=== PATIENT | female | born 1985 | race Caucasian/White ===

== ENCOUNTER 2019-05-14 10:09 | Emergency (ER) | payer MEDICAID ==
[~2019-05-14] VITALS: Ht 175.3 cm; Wt 101.2 kg
[2019-05-14 10:13] VITALS: BP 131/88; Ht 175.3 cm; Wt 101.2 kg
== END 2019-05-14 13:17 | disposition left against medical advice (07) ==
LOC: ED 10:09
DX: Z53.21 Procedure and treatment not carried out due to patient leaving prior to being seen by health care provider (principal)

== ENCOUNTER 2019-09-14 18:54 | Emergency (ER) | payer MEDICAID, SELFPAY ==
[~2019-09-14] VITALS: Ht 172.7 cm; Wt 102.1 kg
[2019-09-14 19:00] VITALS: Ht 172.7 cm; Wt 102.1 kg
[2019-09-14 20:27] LABS: CALCIUM 8.2 mg/dL (8.5-10.1); CARBON DIOXIDE 25.3 mmol/L (21-32); CHLORIDE SERUM 105 mmol/L (98-107); GFR1 > 60 mL/min; GLUCOSE SERUM 111 mg/dL (74-106); SODIUM SERUM 140 mmol/L (136-145)
[2019-09-14 20:29] LABS: BASOPHIL % 0.1 % (0-2); PLATELET COUNT 240 x10^3mcL (130-400)
[2019-09-14 20:33] LABS: RED CELL DISTRIBUTION WIDTH 16.1 % (11.5-14.5)
[2019-09-14 20:38] LABS: microscopic required? NO
[2019-09-14 20:42] LABS: ALBUMIN 3.7 g/dL (3.4-5.0); ALKALINE PHOSPHATASE 99 U/L (46-116); ALT/SGPT 48 U/L (14-59); AST/SGOT 20 U/L (15-37); BILIRUBIN TOTAL 0.4 mg/dL (0.20-1.00); LIPASE 91 IU/L (73-393)
[2019-09-14 20:44] LABS: TOTAL PROTEIN, SERUM 8.4 g/dL (6.4-8.2)
[2019-09-14 21:04] LABS: UA SPECIFIC GRAVITY >=1.030 (1.005-1.035); urine erythrocyte NEGATIVE (NEGATIVE)
[2019-09-14 21:10] LABS: AMPHETAMINE QUAL UR NONE DETECTED (See below)
[2019-09-14 22:45] VITALS: BP 141/97
== END 2019-09-14 22:45 | disposition home or self-care (01) ==
LOC: ED 18:54
PROVIDERS: Emergency Medicine
DX: R10.30 Lower abdominal pain, unspecified (principal); R11.2 Nausea with vomiting, unspecified; R19.7 Diarrhea, unspecified; I10 Essential (primary) hypertension; Z20.828 Contact with and (suspected) exposure to other viral communicable diseases
CPT/HCPCS: 36600; J2405; J3490; Q0092; U0003-CS

== ENCOUNTER 2019-11-06 12:31 | Emergency (ER) | payer MEDICAID ==
[~2019-11-06] VITALS: Ht 172.7 cm; Wt 97.5 kg
[2019-11-06 13:23] VITALS: Ht 172.7 cm; Wt 97.5 kg
[2019-11-06 14:40] LABS: CALCIUM 8.5 mg/dL (8.5-10.1); CHLORIDE SERUM 102 mmol/L (98-107); CREATININE SERUM 0.8 mg/dL (0.6-1.0); GFR1 > 60 mL/min; GLUCOSE SERUM 100 mg/dL (74-106); POTASSIUM SERUM 4.1 mmol/L (3.5-5.1); SODIUM SERUM 136 mmol/L (136-145)
[2019-11-06 14:41] LABS: AMPHETAMINE QUAL UR NONE DETECTED (See below)
[2019-11-06 14:44] LABS: BASOPHIL % 0.2 % (0-2); PLATELET COUNT 249 x10^3mcL (130-400)
[2019-11-06 14:46] LABS: RED CELL DISTRIBUTION WIDTH 15.5 % (11.5-14.5)
[2019-11-06 14:47] LABS: ALBUMIN 3.7 g/dL (3.4-5.0); ALKALINE PHOSPHATASE 108 U/L (46-116); ALT/SGPT 71 U/L (14-59); AST/SGOT 22 U/L (15-37); BILIRUBIN TOTAL 0.3 mg/dL (0.20-1.00); CHOLESTEROL 157 mg/dL (<200); TOTAL PROTEIN, SERUM 8.3 g/dL (6.4-8.2)
[2019-11-06 15:44] VITALS: BP 138/87
== END 2019-11-06 15:44 | disposition home or self-care (01) ==
LOC: ED 12:31
PROVIDERS: Emergency Medicine
DX: R42 Dizziness and giddiness (principal); R51 Headache; I10 Essential (primary) hypertension
CPT/HCPCS: 36600; G0480; J2405; J7030; J8597

== ENCOUNTER 2019-11-12 22:30 | Emergency (ER) | payer MEDICAID ==
[~2019-11-12] VITALS: Ht 172.7 cm; Wt 104.6 kg
[2019-11-12 22:40] VITALS: BP 145/92; Ht 172.7 cm; Wt 104.6 kg
== END 2019-11-12 23:21 | disposition home or self-care (01) ==
LOC: ED 22:30
DX: S61.412A Laceration without foreign body of left hand, initial encounter (principal); I10 Essential (primary) hypertension; W45.8XXA Other foreign body or object entering through skin, initial encounter; Y93.89 Activity, other specified; Y92.89 Other specified places as the place of occurrence of the external cause; Y99.8 Other external cause status
CPT/HCPCS: 90715; J2001

== ENCOUNTER 2019-12-01 15:10 | Emergency (ER) | payer MEDICAID ==
[~2019-12-01] VITALS: Ht 172.7 cm; Wt 100.7 kg
[2019-12-01 15:18] VITALS: Ht 172.7 cm; Wt 100.7 kg
[2019-12-01 16:29] LABS: CALCIUM 8.2 mg/dL (8.5-10.1); CARBON DIOXIDE 26.2 mmol/L (21-32); CHLORIDE SERUM 102 mmol/L (98-107); GFR1 > 60 mL/min; GLUCOSE SERUM 95 mg/dL (74-106); SODIUM SERUM 138 mmol/L (136-145)
[2019-12-01 17:53] VITALS: BP 120/82
== END 2019-12-01 17:53 | disposition home or self-care (01) ==
LOC: ED 15:10
PROVIDERS: Emergency Medicine
DX: R10.84 Generalized abdominal pain (principal); M54.5 Low back pain; I10 Essential (primary) hypertension
CPT/HCPCS: J1885; Q0092

== ENCOUNTER 2020-05-28 13:42 | Emergency (ER) | payer MEDICAID ==
[~2020-05-28] VITALS: Ht 172.7 cm; Wt 103.4 kg
[2020-05-28 13:47] VITALS: Ht 172.7 cm; Wt 103.4 kg
[2020-05-28 15:12] LABS: CALCIUM 8.9 mg/dL (8.5-10.1); CARBON DIOXIDE 18.1 mmol/L (21-32); CHLORIDE SERUM 105 mmol/L (98-107); CREATININE SERUM 0.8 mg/dL (0.6-1.0); GFR1 > 60 mL/min; GLUCOSE SERUM 97 mg/dL (74-106); POTASSIUM SERUM 4.7 mmol/L (3.5-5.1); SODIUM SERUM 138 mmol/L (136-145)
[2020-05-28 15:27] LABS: ALBUMIN 3.8 g/dL (3.4-5.0); ALKALINE PHOSPHATASE 110 U/L (46-116); ALT/SGPT 87 U/L (14-59); AST/SGOT 54 U/L (15-37); BILIRUBIN TOTAL 0.2 mg/dL (0.20-1.00); TOTAL PROTEIN, SERUM 8.5 g/dL (6.4-8.2)
[2020-05-28 15:49] LABS: BASOPHIL % 0.3 % (0.2-1.3); PLATELET COUNT 226 x10^3mcL (179-408)
[2020-05-28 15:55] LABS: RED CELL DISTRIBUTION WIDTH 15.8 % (12.3-17.7)
[2020-05-28 16:32] VITALS: BP 140/82
== END 2020-05-28 16:32 | disposition home or self-care (01) ==
LOC: ED 13:42
PROVIDERS: Student in an Organized Health Care Education/Training Program
DX: F41.9 Anxiety disorder, unspecified (principal); I10 Essential (primary) hypertension; F10.10 Alcohol abuse, uncomplicated
CPT/HCPCS: J7030